=== PATIENT | female | born 1955 | race African-American/Black ===

== ENCOUNTER 2022-03-23 08:50 | Inpatient (IN) | payer MEDICARE, OTHER ==
[~2022-03-23] VITALS: Ht 160 cm; Wt 40.8 kg
[~2022-03-23 08:50] MED LIST: PHEN100C4 PO; PHEN15TA25
[2022-03-23 10:04] LABS: CHLORIDE 109 mEq/L (98-107)
[2022-03-23 10:05] LABS: BASOPHILS % 0.3 % (0.0-2.0); HEMOGLOBIN. 10.4 g/dL (12.0-16.0); LYMPHOCYTES % 9.5 % (20.0-50.0); MEAN CORPUSCULAR HEMOGLOBIN 24.2 pg (28.0-32.0); MEAN CORPUSCULAR VOLUME 79.3 fL (81.0-99.0); MEAN PLATELET VOLUME 9.8 fl (7.4-10.4); MONOCYTES % 6.7 % (2.0-8.0); NEUTROPHILS % 83.5 % (40.0-76.0); PLATELET 199 x1000/uL (130-400); RED BLOOD CELL COUNT 4.29 mill/uL (4.2-5.4); RED CELL DISTRIBUTION WIDTH 15.1 % (11.6-14.6)
[2022-03-23] MEDS ORDERED: IOHEXOL-350 100 ML BOTTLE ONE (10:06)
[2022-03-23 10:12] LABS: ETHANOL BLOOD < 10 mg/dL
[2022-03-23] MEDS ORDERED: POTASSIUM CHLORIDE 20MEQ TABLET SR PO NR (12:00)
[2022-03-23] MEDS ORDERED: ACETAMINOPHEN 325MG TABLET PO PRN (12:00)
[2022-03-23] MEDS ORDERED: ONDANSETRON HCL 4MG/2ML INJ IV PRN (12:00)
[2022-03-23] MEDS: ENOXAPARIN 40MG/0.4ML SYR SUBCUT SCH (13:00)
[2022-03-23 19:13] LABS: CLARITY URINE CLEAR (CLEAR); COLOR URINE YELLOW (YELLOW); KETONES URINE 2+ (NEGATIVE); LEUKOCYTE ESTERASE URINE NEGATIVE (NEGATIVE); NITRITE URINE NEGATIVE (NEGATIVE); OCCULT BLOOD URINE TRACE (NEGATIVE); PH URINE 5.5 (4.5-8.0); PROTEIN URINE 1+ (NEGATIVE); SPECIFIC GRAVITY URINE 1.079 (1.005-1.030); UROBILINOGEN URINE 0.2 E.U./dL (0.2-1.0)
[2022-03-23 20:00] VITALS: BP 144/85
[2022-03-23 20:22] LABS: *AMPHETAMINES SCREEN URINE NEGATIVE (NEGATIVE); *BARBITURATES SCREEN URINE NEGATIVE (NEGATIVE); *BENZODIAZEPINES SCREEN URINE NEGATIVE (NEGATIVE); *COCAINE SCREEN URINE NEGATIVE (NEGATIVE); CANNABINOID URINE SCREEN PRESUMTIVE POSITIVE (NEGATIVE); METHADONE URINE SCREEN NEGATIVE (NEGATIVE); OPIATES URINE SCREEN NEGATIVE (NEGATIVE); PHENCYCLIDINE URINE SCREEN NEGATIVE (NEGATIVE)
[2022-03-23] MEDS: ATORVASTATIN CALCIUM 40MG TABLET PO SCH (21:45)
[2022-03-23] MEDS ORDERED: GABAPENTIN PO (22:34)
[2022-03-23] MEDS ORDERED: KEPP500 PO (22:34)
[2022-03-23] MEDS ORDERED: PRO1 PO (22:34)
[2022-03-23] MEDS ORDERED: FERR325T23 MT (22:34)
[2022-03-23] MEDS ORDERED: PNEUMOCOCCAL 23-VAL P-SAC VAC 0.5 ML IM ONE (23:00)
[2022-03-23] MEDS ORDERED: INFLUENZA VACCINE 05/PF 0.5 ML SYRINGE IM ONE (23:00)
[2022-03-23 23:32] VITALS: BP 144/85
[2022-03-24 00:19] VITALS: BP 139/84
[2022-03-24 04:00] VITALS: BP 142/81
[2022-03-24 07:10] LABS: BASOPHILS % 0.3 % (0.0-2.0); HEMOGLOBIN. 11.9 g/dL (12.0-16.0); LYMPHOCYTES % 16.5 % (20.0-50.0); MEAN CORPUSCULAR HEMOGLOBIN 24.8 pg (28.0-32.0); MEAN CORPUSCULAR VOLUME 78.9 fL (81.0-99.0); MEAN PLATELET VOLUME 10.2 fl (7.4-10.4); MONOCYTES % 7.8 % (2.0-8.0); NEUTROPHILS % 75.4 % (40.0-76.0); PLATELET 207 x1000/uL (130-400); RED BLOOD CELL COUNT 4.81 mill/uL (4.2-5.4); RED CELL DISTRIBUTION WIDTH 15.2 % (11.6-14.6)
[2022-03-24 08:00] VITALS: BP 145/83
[2022-03-24 08:09] LABS: CHLORIDE 110 mEq/L (98-107)
[2022-03-24] MEDS: ASPIRIN 81MG TABLET PO SCH (08:39)
[2022-03-24] MEDS: AMLODIPINE 10MG TABLET PO SCH (10:45)
[2022-03-24] MEDS: CLONIDINE 0.1MG TABLET PO PRN ×2 (11:28→13:29)
[2022-03-24] MEDS: ENOXAPARIN 40MG/0.4ML SYR SUBCUT SCH (13:00)
[2022-03-24] MEDS: LEVETIRACETAM 500MG TABLET PO SCH ×2 (13:35→21:35)
[2022-03-24] MEDS: GABAPENTIN 100MG CAPSULE PO SCH ×2 (13:35→21:33)
[2022-03-24 16:00] VITALS: BP 137/90
[2022-03-24 20:00] VITALS: BP 121/79
[2022-03-24] MEDS: ATORVASTATIN CALCIUM 40MG TABLET PO SCH (21:33)
[2022-03-25 00:36] VITALS: BP 117/82
[2022-03-25 04:00] VITALS: BP 121/73
[2022-03-25] MEDS: GABAPENTIN 100MG CAPSULE PO SCH ×2 (05:51→15:19)
[2022-03-25 07:41] VITALS: BP 125/86
[2022-03-25] MEDS: AMLODIPINE 10MG TABLET PO SCH (07:55)
[2022-03-25] MEDS: LEVETIRACETAM 500MG TABLET PO SCH (07:55)
[2022-03-25] MEDS: ASPIRIN 81MG TABLET PO SCH (07:55)
[2022-03-25 08:00] VITALS: BP 153/71
[2022-03-25] MEDS ORDERED: LIP40 PO (10:40)
[2022-03-25] MEDS ORDERED: ASPI-1160 PO (10:40)
[2022-03-25 12:00] VITALS: BP 141/80
[2022-03-25 14:38] VITALS: BP 141/80
[2022-03-25] MEDS: ENOXAPARIN 40MG/0.4ML SYR SUBCUT SCH (15:19)
== END 2022-03-25 17:59 | disposition home or self-care (01) | DRG 47 ==
LOC: ER 08:50 → 7WST 11:30 → EDBEDREQTM 11:54 → EDBEDREQSVC 11:54 → EDBEDREQ 11:54
PROVIDERS: ADMIT Internal Medicine; ATTEND Internal Medicine
DX: G45.9 Transient cerebral ischemic attack, unspecified (principal); G93.41 Metabolic encephalopathy; E44.1 Mild protein-calorie malnutrition; F03.90 Unspecified dementia, unspecified severity, without behavioral disturbance, psychotic disturbance, mood disturbance, and anxiety; D64.9 Anemia, unspecified; E87.6 Hypokalemia; I10 Essential (primary) hypertension; Z68.1 Body mass index [BMI] 19.9 or less, adult; R47.81 Slurred speech; G83.21 Monoplegia of upper limb affecting right dominant side; R29.704 NIHSS score 4
CPT/HCPCS: 36415; 70496; 70498; 70551; 71045; 80048; 80053; 80305; 80320; 81003; 85025; 90686; 90732; 92610; 93005; 97162; 97165; 99291; J1650; Q9967; G0480